=== PATIENT | male | born 1980 | race Caucasian/White ===

== ENCOUNTER → 2020-12-07 | Outpatient (CLI) | payer BC ==
--- NOTE | 2020-12-07 16:01 | KCIC ---
MRI of the lumbar spine without contrast 12/07/2020 CLINICAL HISTORY: Low back pain with bilateral leg pain. TECHNIQUE: Unenhanced T1-weighted and T2-weighted sagittal and axial and inversion recovery sagittal images of the lumbar spine were obtained. FINDINGS: Minimal S-shaped curvature of the thoracolumbar spine is seen. Degenerative signal changes and loss of height are seen involving the L2-3 and L5-S1 discs. Degenerative signal changes are seen within the marrow surrounding these discs. What appears to be a Schmorl's node is seen extending from the L2-3 disc space superiorly into the inferior aspect of the L2 vertebral body. This measures 2.5 cm in size. The conus medullaris is normal morphology, position, and signal characteristics. An expansile mass is seen involving the S1 and S2 vertebral bodies. This measures 4.5 x 3.4 x 3.7 x 3 .4 cm in transverse, AP and craniocaudal dimensions. This is consistent with metastatic disease versu s multiple myeloma. The mass extends to the sacral spinal canal, left greater than right resulting in severe central spinal canal stenosis. Severe bilateral neural foraminal stenosis is seen at S1-2. No additional metastasis is seen. The changes of degenerative disc disease are seen throughout the lumbar disc spaces. These consist of mild to moderate generalized disc bulges, degenerative changes involving the facet joints, small fac et joint effusions and mild ligamentum flavum hypertrophy. These findings do not result in additional areas of significant central spinal canal or neural foraminal stenosis. IMPRESSION: An expansile mass consistent with metastatic disease versus multiple myeloma is seen invo lving the S1 and S2 vertebrae extending into the sacral spinal canal resulting in severe central spin al canal stenosis with severe bilateral neural foraminal stenosis at S1-2. These findings were discussed with Dr. Stephenson's nurse. Electronically signed by: Isaiah Barriga MD (12/07/2020 3:59 PM) [id number]
== END ==
LOC: KCIC MRI 13:45
PROVIDERS: ATTEND Family Medicine
DX: M43.8X5 Other specified deforming dorsopathies, thoracolumbar region (principal); M51.16 Intervertebral disc disorders with radiculopathy, lumbar region; M48.061 Spinal stenosis, lumbar region without neurogenic claudication; R19.09 Other intra-abdominal and pelvic swelling, mass and lump; G95.89 Other specified diseases of spinal cord; M25.48 Effusion, other site
CPT/HCPCS: 72148

== ENCOUNTER → 2020-12-07 | Outpatient (CLI) | payer BC ==
--- NOTE | 2020-12-07 15:22 | KCIC ---
MRI of the cervical spine without contrast 12/07/2020 CLINICAL HISTORY: Neck pain with bilateral arm weakness. TECHNIQUE: Unenhanced T1-weighted, T2-weighted and inversion recovery sagittal and gradient echo, T1- weighted and T2-weighted axial images of the cervical spine were obtained. FINDINGS: No previous studies are available for comparison. Minimal lateral curvature of the cervical spine is seen convex to the left. There is straightening of the normal cervical lordosis. Degenerative signal changes are seen involving all of the disks of the cervical spine. No area of abnormal signal intensity is seen involving the cervical spinal cord. Expansile mass lesions concerning for metastatic disease versus multiple myeloma are seen involving t he C5, C6 and C7 vertebrae. Marked pathologic compression fracture of the C6 vertebral body is seen. This has lost approximately 80 percent of its normal height. Tumor extends into the epidural space, p articularly anteriorly and laterally, resulting in moderate to severe central spinal canal stenosis w ith moderate cord impingement and severe bilateral neural foraminal stenosis at C5-6 and moderate to severe left greater than right central spinal canal stenosis with severe left neural foraminal stenos is and moderate to severe left greater than right cord impingement at C6-7. Degenerative changes are seen throughout the remaining cervical disc spaces consisting of minimal to mild generalized disc bulges and degenerative changes involving the uncovertebral and facet joints. A focal central disc protrusion is seen at C3-4 which measures 4 mm in AP diameter. This effaces the a nterior CSF resulting in mild central spinal canal stenosis without cord impingement. A central/left paracentral focal disc protrusion is seen at C4-5 which measures 4 mm in AP diameter. This effaces th e anterior CSF resulting in mild central spinal canal stenosis without cord impingement. 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 Pathologic compression fracture of the C6 vertebral body is seen. Tumor extends into the epidural space, particularly anteriorly and laterally resulting in m oderate to severe central spinal canal stenosis with moderate cord impingement and severe bilateral n eural foraminal stenosis at C5-6 and moderate to severe left greater than right central spinal canal stenosis with severe left neural foraminal stenosis and moderate to severe left greater than right co rd impingement at C6-7. These findings were discussed with Dr. Cipriano lua. Electronically signed by: Isaiah Barriga MD (12/07/2020 3:20 PM) [id number]
== END ==
LOC: KCIC MRI 13:53
PROVIDERS: ATTEND Internal Medicine Gastroenterology
DX: M48.52XA Collapsed vertebra, not elsewhere classified, cervical region, initial encounter for fracture (principal); G95.89 Other specified diseases of spinal cord; M47.812 Spondylosis without myelopathy or radiculopathy, cervical region; M48.02 Spinal stenosis, cervical region; M50.11 Cervical disc disorder with radiculopathy, high cervical region
CPT/HCPCS: 72141